=== PATIENT | female | born 2000 | race Caucasian/White ===

== ENCOUNTER 2020-11-13 11:51 | Outpatient (CLI) | payer OTHER | END 2020-11-13 12:20 | disposition home or self-care (01) | LOC: LAB 11:51 | DX: E11.65 Type 2 diabetes mellitus with hyperglycemia (principal); E03.8 Other specified hypothyroidism; E78.2 Mixed hyperlipidemia; Z34.90 Encounter for supervision of normal pregnancy, unspecified, unspecified trimester; E22.0 Acromegaly and pituitary gigantism; Z79.01 Long term (current) use of anticoagulants; E22.1 Hyperprolactinemia; R91.8 Other nonspecific abnormal finding of lung field ==

== ENCOUNTER 2020-11-15 14:04 | Outpatient (CLI) | payer OTHER | END 2020-11-15 14:11 | disposition home or self-care (01) | LOC: EKG 14:04 | DX: Z13.6 Encounter for screening for cardiovascular disorders (principal) ==